=== PATIENT | female | born 1935 | race Caucasian/White ===

== ENCOUNTER 2019-02-15 03:54 | Emergency (ER) | payer MEDICARE, OTHER ==
[2019-02-15 03:56] VITALS: BMI 23.2
[2019-02-15 04:56] LABS: BASOPHILS 0 % (0-2); EOSINOPHILS 0.4 % (0-7); HEMATOCRIT 30.9 % (36.0-48.0); HEMOGLOBIN 9.4 g/dL (12-16); IMMATURE GRANULOCYTES 0.1 % (0-5); LYMPHOCYTES 5.4 % (15-50); MCH 25.5 pg (26.0-34.0); MCHC 30.4 g/dL (31.0-37.0); MEAN PLATELET VOLUME 8.6 fL (7.4-10.4); MONOCYTES 4.8 % (2-11); NEUTROPHILS 89.3 % (40-80); PLATELET COUNT 240 10x3/uL (130-400); RBC 3.68 10x6/uL (4.00-5.40); RDW 17.5 % (11.5-14.5); WBC 7.9 10x3/uL (4.8-10.8)
[2019-02-15 05:11] LABS: ALBUMIN 3.1 g/dL (3.4-5.0); ALKALINE PHOSPHATASE 54 U/L (46-116); ALT (SGPT) 24 U/L (10-68); BILIRUBIN - TOTAL 0.36 mg/dL (0.2-1.3); CALC OSMOLALITY 284 mosm/kg (275-300); CALCIUM 9.7 mg/dL (8.5-10.1); CARBON DIOXIDE 25.9 mmol/L (21.0-32.0); CHLORIDE - SERUM 106 mmol/L (98-107); GLUCOSE 165 mg/dL (74-106); POTASSIUM - SERUM 3.7 mmol/L (3.5-5.1); PROTEIN - SERUM 6.8 g/dL (6.4-8.2); SODIUM 140 mmol/L (136-145); UREA NITROGEN 18 mg/dL (7-18); eGFR NON AFRICAN AMERICAN 56 mL/min (90-120)
[2019-02-15 05:15] LABS: AMYLASE - SERUM 47 U/L (25-115); CREATINE KINASE 48 UL (21-215); LIPASE 309 U/L (73-393)
[2019-02-15 05:16] LABS: TROPONIN-I < 0.017 ng/mL (0.000-0.060)
[2019-02-15] MEDS ORDERED: ZOFRAN ODT4 MG/UDTAB PO (06:07)
[2019-02-15 07:45] LABS: APPEARANCE CLEAR (CLEAR); BILIRUBIN NEGATIVE (NEGATIVE); COLOR YELLOW (YELLOW); GLUCOSE NEGATIVE (NEGATIVE); KETONE NEGATIVE (NEGATIVE); NITRITE NEGATIVE (NEGATIVE); PROTEIN NEGATIVE (NEGATIVE); UROBILINOGEN NORMAL (NORMAL)
[2019-02-15 08:58] VITALS: BP 154/68
== END 2019-02-15 08:52 | disposition home or self-care (01) ==
LOC: D.ER 03:54
PROVIDERS: Emergency Medicine; Family Medicine
DX: R11.2 Nausea with vomiting, unspecified (principal)

== ENCOUNTER → 2019-03-12 13:58 | Outpatient (CLI) | payer MEDICARE, OTHER ==
[2019-02-15 03:56] VITALS: BMI 23.2
[~2019-03-12 13:58] MED LIST: ZOFRAN ODT4 MG/UDTAB PO
== END | disposition home or self-care (01) ==
LOC: D.HCCARDIO 13:58
PROVIDERS: ATTEND Internal Medicine Cardiovascular Disease
DX: I34.0 Nonrheumatic mitral (valve) insufficiency (principal); R60.0 Localized edema

== ENCOUNTER → 2019-03-12 16:31 | Outpatient (CLI) | payer MEDICARE, OTHER ==
[2019-02-15 03:56] VITALS: BMI 23.2
[2019-03-12 18:18] LABS: ANION GAP 15.2 mmol/L (8-16); CALCIUM 9.9 mg/dL (8.5-10.1); CARBON DIOXIDE 24.8 mmol/L (21.0-32.0); CREATININE - SERUM 1.1 mg/dL (0.6-1.3)
== END | disposition home or self-care (01) ==
LOC: D.LABREF 16:31
PROVIDERS: ATTEND Internal Medicine Cardiovascular Disease
DX: I10 Essential (primary) hypertension (principal)

== ENCOUNTER → 2020-03-28 13:23 | Outpatient (CLI) | payer MEDICARE, OTHER | END | disposition home or self-care (01) | LOC: D.HCCECHO 13:23 | PROVIDERS: ATTEND Internal Medicine Cardiovascular Disease | DX: I34.0 Nonrheumatic mitral (valve) insufficiency (principal) ==

== ENCOUNTER → 2021-01-10 10:16 | Outpatient (CLI) | payer MEDICARE, OTHER | END | disposition home or self-care (01) | LOC: D.HCCARDIO 01-05 10:30 | PROVIDERS: ATTEND Internal Medicine Cardiovascular Disease | DX: I25.10 Atherosclerotic heart disease of native coronary artery without angina pectoris (principal) ==